=== PATIENT | male | born 1970 | race Two or more races ===

== ENCOUNTER 2021-02-13 07:39 | Emergency (ER) | payer OTHER ==
[~2021-02-13] VITALS: Ht 185.4 cm; Wt 110.0 kg
--- NOTE | 2021-02-13 07:42 | NUR ---
Pt brought straight back with law enforcement for exposure blood work. Pt spat on law officer this am and per protocol need lab work done. PT has no medical complaints at this time.
[2021-02-13 07:45] VITALS: BP 140/98
--- NOTE | 2021-02-13 08:27 | NUR ---
LABS COLLECTED, DC INSTRUCTIONS REVIEWED.
== END 2021-02-13 08:32 | disposition home or self-care (01) ==
LOC: ED 08:06
DX: Z00.00 Encounter for general adult medical examination without abnormal findings (principal); Z77.21 Contact with and (suspected) exposure to potentially hazardous body fluids
CPT/HCPCS: 36415; 86803; 87340; 87806; 99283; G0475